=== PATIENT | male | born 1935 | race Caucasian/White ===

== ENCOUNTER 2018-01-20 13:14 | Emergency (ER) | payer MEDICARE, BC ==
[~2018-01-20] VITALS: Ht 180.3 cm; Wt 87.0 kg
[~2018-01-20 13:14] MED LIST: CIPROFLOXACN500 MG PO; DIGITEK0.25 MG PO; LISINOPRIL20 MG PO; METOPROL TAR50 MG PO; PRADAXA150 MG PO; PRAVASTATIN40 MG PO; allo OR; allo PO
[2018-01-20] MEDS ORDERED: TRAMADOL HCL50 MG PO (14:45)
[2018-01-20 14:48] VITALS: BP 141/77
== END 2018-01-20 15:13 | disposition home or self-care (01) ==
LOC: ED 13:14
PROC: 2W3MX1Z Immobilization of Left Lower Extremity using Splint (ICD-10-PCS; principal; 2018-01-20)
DX: S00.83XA Contusion of other part of head, initial encounter (principal); S80.02XA Contusion of left knee, initial encounter; S83.92XA Sprain of unspecified site of left knee, initial encounter; W55.22XA Struck by cow, initial encounter; Y93.K9 Activity, other involving animal care; Y92.79 Other farm location as the place of occurrence of the external cause; M25.562 Pain in left knee; M25.511 Pain in right shoulder; M25.462 Effusion, left knee
CPT/HCPCS: L1830

== ENCOUNTER → 2018-07-17 | Outpatient (REF) | payer MEDICARE, BC ==
[~2018-07-17] MED LIST changes: +TRAMADOL HCL50 MG PO
[2018-07-17 08:39] LABS: HEMATOCRIT 38.8 % (39.0-50.0); HEMOGLOBIN 12.8 g/dl (14.0-18.0); MEAN CELL VOLUME 95.3 fL CALC (80.0-100.0); MEAN CORPUSCULAR HGB 31.4 pG CALC (26.0-32.0); RED BLOOD COUNT 4.07 mill/uL (4.70-6.10); RED CELL DISTRI WIDTH 14.8 % (11.5-15.5)
[2018-07-17 09:03] LABS: ALBUMIN 4.2 g/dL (3.2-5.0); ALKALINE PHOSPHATASE 66 u/l (38-126); ANION GAP 13 (6-22 (CALC)); BUN 24 mg/dL (8-23); BUN/CREATININE RATIO 19 (12-20 (CALC)); CALCULATED LDLCHOLESTEROL 55 mg/dL (62-129 (CALC)); CARBON DIOXIDE 27 mmol/l (22-30); CHLORIDE 104 mmol/l (95-108); CHOLESTEROL HDL RATIO 1.8 (<4.4 (CALC)); CREATININE 1.2 mg/dL (0.7-1.3); GFR 58 ML/MIN (>=60 (CALC)); GFR FOR AFR.AMER. > 60 ML/MIN (>=60 (CALC)); HDL CHOLESTEROL 86 mg/dL (>=40); POTASSIUM 4.6 mmol/l (3.5-5.1); SGOT/AST 21 u/l (19-48); SODIUM 140 mmol/l (137-146); TOTAL CHOLESTEROL 159 mg/dl (0-199); TOTAL TRIGLYCERIDES 87 mg/dl (30-149); VLDL CHOLESTROL 17 mg/dl (0-38 (CALC))
== END | disposition home or self-care (01) ==
LOC: LAB 08:04
PROVIDERS: ATTEND Internal Medicine
DX: I10 Essential (primary) hypertension (principal); I48.2 Chronic atrial fibrillation; M19.019 Primary osteoarthritis, unspecified shoulder; D64.9 Anemia, unspecified

== ENCOUNTER 2019-01-14 10:43 | Emergency (ER) | payer MEDICARE, BC ==
[~2019-01-14] VITALS: Ht 180.3 cm; Wt 93.2 kg
[2019-01-14 11:08] VITALS: BP 140/82
== END 2019-01-14 13:26 | disposition home or self-care (01) ==
LOC: ED 10:43
DX: S50.11XA Contusion of right forearm, initial encounter (principal); M25.421 Effusion, right elbow; W01.0XXA Fall on same level from slipping, tripping and stumbling without subsequent striking against object, initial encounter; Y93.H9 Activity, other involving exterior property and land maintenance, building and construction; Y92.007 Garden or yard of unspecified non-institutional (private) residence as the place of occurrence of the external cause